=== PATIENT | female | born 1935 | race Caucasian/White ===

== ENCOUNTER 2018-04-03 12:16 | Emergency (ER) | payer MEDICARE ==
[2018-04-03 12:23] VITALS: RESP 16; TEMP 97.8
[2018-04-03] MEDS ORDERED: HYDROcodone/APAP 5-325MG 1 EACH TAB PO STA (12:42)
--- NOTE | 2018-04-03 13:09 | ED ---
General Adult HPI - General Chief complaint: Fall Stated complaint: Fall Time Seen by Provider: 04/03/18 12:18 Source: patient, RN notes reviewed, old records reviewed Mode of arrival: EMS Limitations: no limitations - History of Present Illness Initial comments: This is a 82-year-old female today. Patient presents today for evaluation regards to fall. Patient had fall off curb landing on right side. Patient was not amateur after fall. Patient denies any had no loss of consciousness. Patient not on a blood thinners. And again is complaining of right-sided pain, right arm pain and right shoulder pain - Related Data Home Medications Medication Instructions Recorded Confirmed cycloSPORINE [Restasis] 1 applicator BOTH EYES BID 04/03/18 04/03/18 Allergies Allergy/AdvReac Type Severity Reaction Status Date / Time Sulfa (Sulfonamide Allergy Unknown Verified 04/03/18 12:23 Antibiotics) Review of Systems ROS Statement: Those systems with pertinent positive or pertinent negative responses have been documented in the HPI. ROS Other: All systems not noted in ROS Statement are negative. Past Medical History Past Medical History: Asthma, Hyperlipidemia History of Any Multi-Drug Resistant Organisms: None Reported Past Surgical History: Orthopedic Surgery Past Psychological History: No Psychological Hx Reported Smoking Status: Never smoker Past Alcohol Use History: None Reported Past Drug Use History: None Reported General Exam Limitations: no limitations General appearance: alert, in no apparent distress Head exam: Present: atraumatic, normocephalic, normal inspection Eye exam: Present: normal appearance, PERRL, EOMI. Absent: scleral icterus, conjunctival injection, periorbital swelling ENT exam: Present: normal exam, mucous membranes moist Neck exam: Present: normal inspection. Absent: tenderness, meningismus, lymphadenopathy Respiratory exam: Present: normal lung sounds bilaterally. Absent: respiratory distress, wheezes, rales, rhonchi, stridor Cardiovascular Exam: Present: regular rate, normal rhythm, normal heart sounds. Absent: systolic murmur, diastolic murmur, rubs, gallop, clicks GI/Abdominal exam: Present: soft, normal bowel sounds. Absent: distended, tenderness, guarding, rebound, rigid Extremities exam: Present: normal inspection, full ROM, normal capillary refill. Absent: tenderness, pedal edema, joint swelling, calf tenderness Back exam: Present: normal inspection Neurological exam: Present: alert, oriented X3, CN II-XII intact Psychiatric exam: Present: normal affect, normal mood Skin exam: Present: warm, dry, intact, normal color. Absent: rash Course Vital Signs 04/03/18 04/03/18 12:19 13:56 Temperature 97.8 F Pulse Rate 72 65 Respiratory 16 16 Rate Blood Pressure 176/81 173/74 O2 Sat by Pulse 98 100 Oximetry Medical Decision Making - Medical Decision Making 82 female the ER positive fall. Positive right humerus fracture, patient is place in sling and discharged home - Radiology Data Radiology results: report reviewed (Chest x-ray pelvis x-ray x-ray right arm shows positive right humerus fracture), image reviewed Disposition Clinical Impression: Fall, Right humeral fracture Disposition: HOME SELF-CARE Instructions: Fall Prevention for Older Adults (ED), Proximal Humerus Fracture (ED) Is patient prescribed a controlled substance at d/c from ED?: No Referrals: Ivet Patiño MD [Primary Care Provider] - 1-2 days
--- NOTE | 2018-04-03 13:25 | XR ---
EXAMINATION TYPE: XR wrist complete RT , 4 VIEWS DATE OF EXAM ORDERED: 04/03/2018 HISTORY: Pain. COMPARISON: None. FINDINGS: The bones are diffusely osteopenic, likely on the basis of osteoporosis. There are degener ative changes in the first carpal metacarpal joint. No fracture is identified. IMPRESSION: 1. NO ACUTE OSSEOUS LESION. 2. DEGENERATIVE CHANGE.
--- NOTE | 2018-04-03 13:26 | XR ---
EXAMINATION TYPE: XR shoulder complete RT , 3 VIEWS DATE OF EXAM ORDERED: 04/03/2018 HISTORY: Pain. COMPARISON: None. FINDINGS: There is a comminuted, foreshortened and mildly angulated fracture of the head and neck of the right humerus. No dislocation is identified. There are hypertrophic changes present in the right AC joint. IMPRESSION: COMPLEX FRACTURE OF THE RIGHT HUMERAL HEAD AND NECK. CODE A: INITIAL ENCOUNTER FOR CLOSED FRACTURE.
--- NOTE | 2018-04-03 13:26 | XR ---
EXAMINATION TYPE: XR chest 1V DATE OF EXAM: 04/03/2018 HISTORY: Pain. REFERENCE: NONE. FINDINGS: Heart size is upper limits of normal. Lungs are clear. Pleural space are clear. IMPRESSION: BORDERLINE CARDIOMEGALY.
--- NOTE | 2018-04-03 13:27 | XR ---
EXAMINATION TYPE: XR pelvis AP view , ONE VIEW DATE OF EXAM ORDERED: 04/03/2018 HISTORY: Pain. COMPARISON: None. FINDINGS: There are degenerative changes in the lower lumbar spine. There are degenerative changes within the both hips bilaterally. No fracture, dislocation or other ac [place] osseous lesion is seen. IMPRESSION: 1. NO ACUTE OSSEOUS LESION. 2. DEGENERATIVE CHANGE.
--- NOTE | 2018-04-03 13:28 | XR ---
EXAMINATION TYPE: XR elbow complete RT , 3 VIEWS DATE OF EXAM ORDERED: 04/03/2018 HISTORY: Pain. COMPARISON: None. FINDINGS: No fracture, dislocation or elbow joint effusion is identified. IMPRESSION: NO ACUTE OSSEOUS LESION.
[2018-04-03 13:57] VITALS: BP 173/74; PULSE 65
== END 2018-04-03 14:57 | disposition home or self-care (01) ==
LOC: EC 12:16
DX: S42.361A Displaced segmental fracture of shaft of humerus, right arm, initial encounter for closed fracture (principal); Z79.899 Other long term (current) drug therapy; Z88.2 Allergy status to sulfonamides; W10.1XXA Fall (on)(from) sidewalk curb, initial encounter; Y92.480 Sidewalk as the place of occurrence of the external cause
CPT/HCPCS: 71045; 72170; 99284